=== PATIENT | male | born 1990 ===

== ENCOUNTER 2017-04-01 19:10 | Emergency (ER) | payer SELFPAY ==
[2017-04-01 19:18] VITALS: RESP 16; TEMP 98.1
--- NOTE | 2017-04-01 19:56 | ED PDOC ---
HPI: Chest Pain Time Seen by Provider: 04/01/17 19:24 Chief Complaint (Nursing): Chest Pain Chief Complaint (Provider): Chest Pain History Per: Patient History/Exam Limitations: no limitations Onset/Duration Of Symptoms: Days (x1.5 months) Current Symptoms Are (Timing): Still Present Additional Complaint(s): 26 y/o male presents to the emergency department with a complaint of a intermittent (2-3 times a week) left-sided pressure like chest pain x1.5 months. Associated with left sided neck pain and paresthesia of the left arm. States pain was more sharp today which is why he came into the emergency department. Reports pain occurs and resolves spontaneously. Denies shortness of breath, left leg swelling, or trauma. Past Medical History Reviewed: Historical Data, Nursing Documentation, Vital Signs Vital Signs: Last Vital Signs Temp 98.1 F 04/01/17 19:16 Pulse 64 04/01/17 23:19 Resp 16 04/01/17 23:19 BP 144/77 04/01/17 23:19 Pulse Ox 98 04/01/17 23:19 - Medical History PMH: No Chronic Diseases - Surgical History Surgical History: No Surg Hx - Family History Family History: States: Unknown Family Hx Denies: CAD - Home Medications Home Medications: Ambulatory Orders Medication Instructions Recorded Cyclobenzaprine [Flexeril] 5 mg PO Q8 PRN #15 tab 04/01/17 Ibuprofen [Motrin Tab] 600 mg PO Q8 PRN #30 tab 04/01/17 - Allergies Allergies/Adverse Reactions: Allergies Allergy/AdvReac Type Severity Reaction Status Date / Time No Known Allergies Allergy Verified 04/01/17 19:16 Review of Systems ROS Statement: Except As Marked, All Systems Reviewed And Found Negative Constitutional: Negative for: Other (Trauma) Cardiovascular: Positive for: Chest Pain Respiratory: Negative for: Shortness of Breath Musculoskeletal: Positive for: Neck Pain, Other (Paresthesia of the left arm). Negative for: Leg Pain (Swelling) Physical Exam - Reviewed Nursing Documentation Reviewed: Yes Vital Signs Reviewed: Yes - Physical Exam Appears: Positive for: Well, Non-toxic, No Acute Distress Head Exam: Positive for: ATRAUMATIC, NORMAL INSPECTION, NORMOCEPHALIC Skin: Positive for: Normal Color, Warm, Dry Eye Exam: Positive for: Normal appearance, EOMI, PERRL ENT: Positive for: Normal ENT Inspection. Negative for: Pharyngeal Erythema Neck: Positive for: Normal, Supple Cardiovascular/Chest: Positive for: Regular Rate, Rhythm. Negative for: Murmur Respiratory: Positive for: Normal Breath Sounds. Negative for: Accessory Muscle Use, Respiratory Distress Gastrointestinal/Abdominal: Positive for: Normal Exam, Soft. Negative for: Tenderness Extremity: Positive for: Normal ROM. Negative for: Tenderness, Pedal Edema Neurologic/Psych: Positive for: Alert, Oriented (x3) - Laboratory Results Result Diagrams: 04/01/17 19:50 04/01/17 19:50 - ECG O2 Sat by Pulse Oximetry: 100 (RA) Pulse Ox Interpretation: Normal Medical Decision Making Medical Decision Making: Time: 19:38 Initial impression: Intermittent chest pain with no cardiac risk factors Initial plan: --EKG --Labs --D Dimer (COAG) --Chest x-ray --Cyclobenzaprine 10 mg PO --Toradol 15 mg IV --Reevaluation --EKG: Normal sinus rhythm at 66 bpm. No QRS or ST segment abnormalities. Labs demonstrated hyperlipidemia. Otherwise no clinically significant abnormalities. (Ddimer unable to result due to lipids. Pt has no SOB or tachycardia or PE risk factors.) Scribe Attestation: Documented by Cori Dickerson, acting as a scribe for Gracie Mccrary MD. Provider Scribe Attestation: All medical record entries made by the Scribe were at my direction and personally dictated by me. I have reviewed the chart and agree that the record accurately reflects my personal performance of the history, physical exam, medical decision making, and the department course for this patient. I have also personally directed, reviewed, and agree with the discharge instructions and disposition. Disposition - Clinical Impression Clinical Impression: Chest pain, Hypertriglyceridemia Counseled Patient/Family Regarding: Studies Performed, Diagnosis, Need For Followup - Disposition Referrals: [facility] [Outside] [facility] [Outside] (FOLLOW UP AT CLINIC WITHIN A WEEK) Disposition: Routine/Home Disposition Time: 22:51 Condition: GOOD Prescriptions: Cyclobenzaprine [Flexeril] 5 mg PO Q8 PRN #15 tab PRN Reason: muscle spasm Ibuprofen [Motrin Tab] 600 mg PO Q8 PRN #30 tab PRN Reason: Pain, Moderate (4-7) Instructions: Noncardiac Chest Pain (ED), Hyperlipidemia (GEN)
[2017-04-01 20:05] LABS: BASO % 0.5 % (0.0-2.0); EOS # 0.2 K/uL (0.0-0.7); EOS % 3.1 % (0.0-4.0); HEMOGLOBIN 15.6 g/dL (12.0-18.0); LYMPH # 1.9 K/uL (1.0-4.3); LYMPH % 36.6 % (20.0-40.0); MEAN CELL VOLUME 84.1 fl (80.0-94.0); MEAN CORPUSCULAR HEMOGLOBIN 29.2 pg (27.0-31.0); MEAN CORPUSCULAR HGB CONC 34.7 g/dL (33.0-37.0); MONO # 0.5 K/uL (0.0-0.8); MONO % 9.7 % (0.0-10.0); NEUT # 2.6 K/uL (1.8-7.0); NEUT % 50.1 % (50.0-75.0); NRBC % 0.1 % (0.0-0.0); RBC 5.33 Mil/uL (4.40-5.90); WHITE BLOOD COUNT 5.2 K/uL (4.8-10.8)
[2017-04-01 20:17] LABS: ALB/GLOB RATIO 1.5 (1.0-2.1); ALBUMIN 4.5 g/dL (3.5-5.0); ALT/SGPT 42 U/L (21-72); AST/SGOT 29 U/L (17-59); BLOOD UREA NITROGEN 17 mg/dl (9-20); CALCIUM 9.3 mg/dL (8.4-10.2); GFR AFRICAN-AMERICAN > 60; GFR NON-AFRICAN AMERICAN > 60; MAGNESIUM 2.1 MG/DL (1.6-2.3)
[2017-04-01 20:22] LABS: BARBITURATES, UR NEGATIVE (NEGATIVE); BENZODIAZEPINES, UR NEGATIVE (NEGATIVE); OPIATES, UR NEGATIVE (NEGATIVE); PHENCYCLIDINE, UR NEGATIVE (NEGATIVE)
[2017-04-01 22:30] LABS: HDL CHOLESTEROL 53 MG/DL (30-70)
[2017-04-01 22:41] LABS: LDL CHOLESTEROL 86 mg/dL (0-129)
[2017-04-01 23:20] VITALS: BP 144/77; PULSE 64
--- NOTE | 2017-04-02 07:38 | CARD ---
APPROVED REPORT EKG Measurement Heart [id number] <Conclusion> Normal sinus rhythm Nonspecific ST and T wave abnormality Abnormal ECG
--- NOTE | 2017-04-02 09:11 | RAD ---
HISTORY: chest pain COMPARISON: No prior. TECHNIQUE: Chest PA and lateral FINDINGS: LUNGS: No active pulmonary disease. PLEURA: No significant pleural effusion identified. No pneumothorax apparent. CARDIOVASCULAR: Normal. OSSEOUS STRUCTURES: No significant abnormalities. VISUALIZED UPPER ABDOMEN: Normal. OTHER FINDINGS: None. IMPRESSION: No active disease.
[2017-04-02 14:41] VITALS: O2SAT 100
== END 2017-04-01 23:20 | disposition home or self-care (01) ==
LOC: H.ER 19:10
DX: R07.89 Other chest pain (principal); E78.5 Hyperlipidemia, unspecified; E78.1 Pure hyperglyceridemia
CPT/HCPCS: 71020; 80053; 80061; 83735; 84100; 84484; 85025; 93005; 99283; G0480; J1885